=== PATIENT | female | born 1955 | race American Indian/Alaskan Native ===

== ENCOUNTER 2018-12-08 12:22 | Emergency (ER) | payer BC ==
[2018-12-08] MEDS ORDERED: KEPPRA 1,000 MG in NACL 0.9% 100 ML IV ONE (13:44)
--- NOTE | 2018-12-08 13:54 | Emergency Department Report ---
ED Fall HPI - General Chief Complaint: Fall Stated Complaint: fall Time Seen by Provider: 12/08/18 13:11 Source: EMS Mode of arrival: Ambulatory - History of Present Illness Initial Comments: 63-year-old female presents to the ED following fall on yesterday. Patient states she was getting out of the shower, when she felt dizzy and fell down. Patient reports LOC. Also pain to right wrist. Patient states her sister gave her something for pain and she slept all night into this afternoon and patient awoke with significant headache and pain to the right wrist so EMS was called. The patient stated she is not currently on any blood thinners, has history of PE, but was taken off one month ago. MD Complaint: fall -: Last night Fall From: standing Place Fall Occurred: home Loss of Consciousness: yes Prolonged Down Time?: no Symptoms Prior to Fall: dizziness Location: head, back Location - Extremities: Right: Forearm Severity: severe Associated Symptoms: headache, lightheaded. denies: neck pain, numbness, chest paint, shortness of breath, abdominal pain - Related Data Allergies Allergy/AdvReac Type Severity Reaction Status Date / Time Penicillins Allergy Swelling Verified 12/08/18 12:57 ED Review of Systems ROS: Stated complaint: fall Other details as noted in HPI Comment: All other systems reviewed and negative Respiratory: denies: shortness of breath Cardiovascular: denies: chest pain Gastrointestinal: nausea Musculoskeletal: as per HPI, joint swelling Neurological: headache ED Past Medical Hx - Past Medical History Previous Medical History?: Yes Hx Hypertension: Yes Hx CVA: Yes Hx Heart Attack/AMI: No Hx Congestive Heart Failure: Yes Hx Diabetes: No Hx Deep Vein Thrombosis: No Hx Pulmonary Embolism: No Hx GERD: No Hx Liver Disease: No Hx Renal Disease: No Hx of Cancer: No Hx Sickle Cell Disease: No Hx Arthritis: Yes Hx Headaches / Migraines: No Hx Seizures: No Hx Kidney Stones: No Hx Psychiatric Treatment: No Hx Asthma: No Hx COPD: No Hx Tuberculosis: No Hx Dementia: No Hx HIV: No - Surgical History Past Surgical History?: No Hx Coronary Stent: No Hx Open Heart Surgery: No Hx Internal Defibrillator: No Hx Cholecystectomy: No Hx Appendectomy: No Hx Breast Surgery: No - Social History Smoking Status: Never Smoker Substance Use Type: None ED Physical Exam - General Limitations: No Limitations General appearance: alert - Head Head exam: Present: atraumatic, normocephalic - Eye Eye exam: Present: normal appearance, PERRL, EOMI - ENT ENT exam: Present: mucous membranes moist - Neck Neck exam: Present: normal inspection, full ROM. Absent: tenderness - Respiratory Respiratory exam: Present: normal lung sounds bilaterally. Absent: respiratory distress - Cardiovascular Cardiovascular Exam: Present: regular rate, normal rhythm - GI/Abdominal GI/Abdominal exam: Present: soft. Absent: distended, tenderness - Extremities Exam Extremities exam: Present: other (swelling, deformity noted to right wrist; able to move fingers; sensation intact; radial pulse strong) - Neurological Exam Neurological exam: Present: alert, oriented X3, CN II-XII intact, other (GCS 15). Absent: motor sensory deficit - Psychiatric Psychiatric exam: Present: normal affect, normal mood - Skin Skin exam: Present: warm, dry, intact, normal color ED Course Vital Signs 12/08/18 12/08/18 12/08/18 12:26 12:30 12:34 Temperature 100.1 F H Pulse Rate 62 64 Respiratory 15 17 Rate Blood Pressure 227/90 Blood Pressure 227/90 [Right] O2 Sat by Pulse 99 99 99 Oximetry 12/08/18 12/08/18 12/08/18 12:46 13:00 13:05 Temperature Pulse Rate 64 68 Respiratory 14 11 L 17 Rate Blood Pressure 227/90 213/88 Blood Pressure [Right] O2 Sat by Pulse 96 97 99 Oximetry 12/08/18 12/08/18 12/08/18 13:15 13:41 13:45 Temperature Pulse Rate 73 Respiratory 13 14 20 Rate Blood Pressure 150/84 150/84 Blood Pressure [Right] O2 Sat by Pulse 99 99 99 Oximetry 12/08/18 12/08/18 12/08/18 14:01 14:15 14:22 Temperature Pulse Rate 73 73 Respiratory 15 Rate Blood Pressure 201/99 190/170 190/170 Blood Pressure [Right] O2 Sat by Pulse 96 99 Oximetry - Consultations Consultation #1: 12/08/18 14:29 [place] [facility] transfer line contacted due to acute SDH on CT 12/08/18 14:[address] Amador, trauma attending at [facility] ED Medical Decision Making - Lab Data Result diagrams: 12/08/18 13:51 12/08/18 13:51 - EKG Data -: EKG Interpreted by Me EKG shows normal: sinus rhythm, axis, intervals, QRS complexes, ST-T waves Rate: normal - EKG Data Interpretation: LVH, other (PACs present) - Radiology Data Radiology results: report reviewed, image reviewed - Medical Decision Making 63-year-old female presents to ED following fall last night while getting out of the shower. Patient presents to ED complaining of headache, back pain and right wrist pain. C-spine nontender. CT Head shows right subdural hematoma with 3 mm [id number] shift. Patient has GCS of 15. Hypertensive with systolic BP in the 200s, IV labetalol given, however remains hypertensive so cardene drip initiated. X-ray right wrist shows comminuted distal radius fracture. Patient neurovascularly intact, sugar tong splint applied. Patient has been accepted for transfer to [facility] by Dr Amador. Awaiting transport arrival. - Differential Diagnosis intracranial abnormality, wrist fracture, contusion Critical Care Time: Yes Critical care time in (mins) excluding proc time.: 35 Critical care attestation.: If time is entered above; I have spent that time in minutes in the direct care of this critically ill patient, excluding procedure time. Critical Care Time: 35 min ED Disposition Clinical Impression: Acute subdural hematoma, Closed fracture of right distal radius Disposition: [id number] ANOTHER TYPE HLTHCARE Is pt being admited?: No Condition: Stable
[2018-12-08] MEDS ORDERED: MORPHINE IV ONE (13:55)
[2018-12-08] MEDS ORDERED: ZOFRAN IV ONE (13:55)
[2018-12-08] MEDS ORDERED: KEPPRA 1,000 MG/NS 0.75% 100ML 1,000 MG/100 ML BAG IV ONE (14:00)
[2018-12-08 14:07] LABS: Basophils # (Auto) 0.1 K/mm3 (0.0-0.1); Basophils % (Auto) 0.9 % (0.0-1.8); Eosinophils % (Auto) 0.6 % (0.0-4.3); Mean Corpuscular HGB Conc 34 % (30-34); Mean Corpuscular Volume 82 fl (79-97); Monocytes # (Auto) 0.6 K/mm3 (0.0-0.8); Monocytes % (Auto) 7.9 % (0.0-7.3); Platelet Count 285 K/mm3 (140-440); Red Blood Count 3.89 M/mm3 (3.65-5.03)
[2018-12-08] MEDS ORDERED: NORMODYNE IV ONE ×2 (14:16→14:21)
[2018-12-08 14:17] LABS: INR 1.12 (0.87-1.13)
[2018-12-08 14:18] LABS: Partial Thromboplastin Time 34.2 Sec. (24.2-36.6)
[2018-12-08 14:23] LABS: BUN/Creatinine Ratio 14; Blood Urea Nitrogen 11 mg/dL (7-17); Calcium 9.7 mg/dL (8.4-10.2); Hemolysis Index 1
--- NOTE | 2018-12-08 14:27 | Cat Scan Report ---
CT HEAD WITHOUT CONTRAST INDICATION: Fall, loss of consciousness. COMPARISON: None similar. FINDINGS: Noncontrast head CT demonstrates an acute, hyperdense right frontotemporal subdural hematoma of approximately 1 cm thickness and 8.5 cm AP as on axial series 2, image 32 with mild underlying right cerebral hemisphere displacement/sulcal effacement. Mild right to left midline shift of approximately 3 mm as on axial image 21. Normal ventricles. Mild periventricular hypodensities. Grossly unremarkable left cerebral hemisphere. Normal posterior fossa with preserved basilar cisterns. Normal imaged eye globes. Clear imaged paranasal sinuses and mastoid air cells. Intact calvarium. Normal scalp. Numerous missing teeth noted. CONCLUSION: Acute right subdural hematoma with approximately 3 mm [id number] midline shift and few other incidental findings, as above. I phoned the above results to Dr. George in the ER, 2:20 PM, 12/08/2018. Thank you for the opportunity to participate in this patient's care.
--- NOTE | 2018-12-08 14:35 | XRay Report ---
RIGHT WRIST RADIOGRAPHS INDICATION: Right arm/wrist pain and swelling post fall. COMPARISON: None similar. FINDINGS: AP and lateral right wrist radiographs demonstrate distal radius metadiaphyseal fracture with lateral cortical offset of 2-3 mm on the frontal view. Possible mild comminution and slight dorsal displacement may be noted on the lateral projection with moderate overlying soft tissue swelling. No articular surface involvement. Demineralized, though grossly intact remainder bones. CONCLUSION: Right distal radius acute fracture with few other findings, as above. Thank you for the opportunity to participate in this patient's care.
--- NOTE | 2018-12-08 14:38 | XRay Report ---
RIGHT FOREARM RADIOGRAPHS INDICATION: Right arm/wrist swelling and pain, status post fall. COMPARISON: None similar at this institution. FINDINGS: AP and lateral views of the right forearm demonstrate distal radius comminuted fracture extending to the distal radial articular surface/radiocarpal articulation. Lateral cortical offset of approximately 4 mm on the frontal view. Grossly intact carpal and remainder forearm bones. Moderate soft tissue swelling about the wrist noted. CONCLUSION: Comminuted right distal radius Colles type fracture extending to the wrist joint, as detailed above. Thank you for the opportunity to participate in this patient's care.
[2018-12-08] MEDS ORDERED: CARDENE 50 MG in NACL 0.9% 250ML 230 ML IV SCH (15:00)
[2018-12-08 15:27] VITALS: BP 169/72
== END 2018-12-08 15:27 | disposition other institution (70) ==
LOC: ED 12:22
DX: S06.5X9A Traumatic subdural hemorrhage with loss of consciousness of unspecified duration, initial encounter (principal); S52.501A Unspecified fracture of the lower end of right radius, initial encounter for closed fracture; W18.30XA Fall on same level, unspecified, initial encounter; Y93.89 Activity, other specified; Y92.89 Other specified places as the place of occurrence of the external cause; Y99.8 Other external cause status
CPT/HCPCS: 29125; 36415; 70450; 73090; 73100; 80048; 84484; 85025; 85610; 85730; 93005; 93010; 96365; 96375; 99291; J1953; J2270; J2405; J7050